=== PATIENT | female | born 1975 | race Caucasian/White ===

== ENCOUNTER → 2018-03-28 | Day surgery (SDC) | payer BC ==
[~2018-03-28] VITALS: Ht 167.6 cm; Wt 106.1 kg
[~2018-03-28] MED LIST: *MEPERIDINE 25 MG INJ VIAL PERIprocedural Use ONLY ONE; *ONDANSETRON 4 MG VIAL PERIprocedural Use ONLY ONE; *morphine SULFATE 4 MG/ML PERIprocedure ONLY ONE; ACETAMINOPHEN 1000 MG/100 ML 100 ML IV ONE; BUPIVACAINE/EPINEPHRINE 0.25% 50 ML VIAL ONE; DEXAMETHASONE SOD PHOS 4 MG/ML VIAL IV ONE; DO NOT ADM ANY ANTICOAGULANT DRUGS PRN; FLUO20CA12 PO; GLYCOPYRROLATE 1 MG/5 ML SYRINGE IV PUSH ONE; LACTATED RINGER'S 1000 ML INJ 1,000 ML IV ONE; LACTATED RINGER'S 1000 ML IV PRN; LIDOCAINE HCL 1% PF 5 ML SYRINGE OTHER ONE; METOPROLOL TARTRATE 25 MG TAB PO PRN; MIDAZOLAM HCL 2 MG/2 ML VIAL ONE; MORPHINE SULFATE 4 MG/ML INJ ONE; NEOSTIGMINE 5 MG/5 ML SYRINGE IV PUSH ONE; ONDANSETRON HCL 4 MG/2 ML VIAL IV ONE; POVIDONE IODINE 5% (ANTISEPSIS KIT) 4 APPLICATIONS EACH NARE PRN; PROPOFOL 200 MG/20 ML AMP IV ONE; ROCURONIUM INJ 50 MG/5 ML SYRINGE IV PUSH ONE; SODIUM CHLORID 0.9% 500 ML IV PRN; STERILE WATER FOR INJECTION 10 ML VIAL IV ONE; VECURONIUM BROMIDE 20 MG VIAL IV ONE; ceFAZolin 2 GM/DEX PREMIX 50 ML IV SCH; ePHEDrine/NS 25 MG/5 ML SYRINGE IV ONE; oxyCODONE/ACETAMINOPHEN 5 MG/325 MG TAB PO PRN
[2018-03-28] MEDS: CHLORHEXIDINE GLUCONATE 2 % 1 PACK (2 CLOTHS) TOPICAL PRN (07:15)
[2018-03-28 08:19] LABS: AUTOMATED NEUTROPHIL # 3.2 TH/MM3 (1.8-7.7); BASOPHIL # 0.1 TH/MM3 (0-0.2); BASOPHIL % 1.1 % (0.0-2.0); EOSINOPHIL # 0.4 TH/MM3 (0-0.4); EOSINOPHIL % 5.4 % (0.0-4.0); HEMATOCRIT 43.3 % (35.0-46.0); HEMOGLOBIN 14.5 GM/DL (11.6-15.3); LYMPH % 38.9 % (9.0-44.0); LYMPHOCYTE # 2.8 TH/MM3 (1.0-4.8); MEAN CORPUSCULAR HEMOGLOBIN 29.1 PG (27.0-34.0); MEAN CORPUSCULAR HGB CONC 33.4 % (32.0-36.0); MEAN PLATELET VOLUME 8.5 FL (7.0-11.0); MONO % 10.2 % (0.0-8.0); MONOCYTE # 0.7 TH/MM3 (0-0.9); NEUT % 44.4 % (16.0-70.0); PLATELET COUNT 335 TH/MM3 (150-450); RED BLOOD COUNT 4.97 MIL/MM3 (4.00-5.30); WHITE BLOOD COUNT 7.1 TH/MM3 (4.0-11.0)
[2018-03-28 08:33] LABS: BICARBONATE 25.1 MEQ/L (21.0-32.0); CALCIUM 8.5 MG/DL (8.5-10.1); CREATININE 0.72 MG/DL (0.50-1.00)
--- NOTE | 2018-03-28 11:56 | HHI.PR ---
Immediate Post Op Note Procedure Date: Mar 28, 2018 Pre Op Diagnosis: morbid obesity, hx of lap band, lap band malfxn, gerd, paraesophageal hiatal hernia Post Op Diagnosis: same Surgeon: Daniel Monte MD Services Mgr(s): see or sheet Procedure: dx lap, lap band removal and all components, paraesophageal hiatal hernia repair , gardenia Findings: GE jxn adhesions, slipped lap band, paraesophageal hernia Complications: none Specimen(s) removed: none Estimated blood loss: 20cc Anesthesia: General Drains: None Patient to: PACU Patient Condition: Good Daniel Monte MD Mar 28, 2018 11:56
[2018-03-28 16:15] VITALS: BP 132/74; PULSE 93; RESP 20; TEMP 97.5; O2SAT 96
--- NOTE | 2018-03-28 17:47 | MP ---
cc: Daniel Monte MD DATE OF OPERATION: 03/28/2018 PREOPERATIVE DIAGNOSES: 1. Morbid obesity. 2. History of laparoscopic band placement, laparoscopic band malfunction, reflux, paraesophageal hiatal hernia. POSTOPERATIVE DIAGNOSES: 1. Morbid obesity. 2. History of laparoscopic band placement, laparoscopic band malfunction, reflux, paraesophageal hiatal hernia. PROCEDURE PERFORMED: 1. Diagnostic laparoscopy. 2. Laparoscopic removal of band with all its components. 3. Paraesophageal hiatal hernia repair. 4. Lysis of adhesions. SURGEON: Daniel Monte MD [facility]: see or sheet ANESTHESIA: GETA. IV FLUIDS: See anesthesia sheet. ESTIMATED BLOOD LOSS: 20 mL DRAINS: None. COMPLICATIONS: None. WOUND CLASSIFICATION: Clean. FINDINGS: Significant adhesions to the GE junction, slipped Lap-Band and paraesophageal hiatal hernia. INDICATIONS FOR PROCEDURE: The patient is a 42-year-old female who presents with a history of bariatric surgery including laparoscopic band placement. The patient had a band in 2009 and had a slippage of this and underwent revision, but the patient had persistent malfunction of Lap-Band and developed a paraesophageal hiatal hernia. Therefore, decision was made for operative intervention. DETAILS OF PROCEDURE: The patient was taken to the operating suite, placed in supine position. She was prepped and draped in the usual sterile fashion after induction of general endotracheal anesthesia. A brief timeout demonstrating correct patient, procedure and surgical site. We were all in agreement with this. Attention first directed to the left side of the umbilicus, 15 cm from the xiphoid. Local anesthetic injected and stab, jose incision made, 5 mm Visiport Optiview port was used to enter the abdomen safely. Abdomen insufflated to 15 mm of pneumoperitoneum. On cursory inspection, GE junction noted to be somewhat scarred in. A right upper quadrant 5 mm port was placed for liver retraction. A second right upper quadrant incision was made 5 cm for port and a 12 mm right lower quadrant port was placed. The left upper quadrant port was also placed 5 mm. The patient was placed in reverse Trendelenburg, airplaned to the right and regine flex was placed, partially elevating the liver. Due to adhesions, full elevation was not possible. The laparoscopic band was noted to be partially visible. Harmonic scalpel used to lyse adhesions around the liver. Once this was facilitated, the liver retractor was repositioned. The Lap-Band adhesions were taken down in order to circumferentially completely mobilize the band. The band was cut and removed from the 12 mm right lower quadrant port. The second cut portion was also removed via the 12 mm port. There was noted to be dilation of the proximal stomach with some chronic scarring, especially at the ET junction. The capsule was incised. This was done using a green load GERA stapler 60 x 3 firings in order to completely open up the chronic fibrosed capsule that had been created after a Lap-Band. Next, we worked medially in order to dissect out the GE junction. The pars was taken down. The left and right crura were identified and adhesions taken down to this view. There was significant scarring again noted in this area. Again, previous hiatal hernia repair was noted. The esophagus was mobilized and the GE junction was reduced into the abdominal cavity. A 1/2 inch [place] was used as a traction device and wrapped around the GE junction. Once the esperanza had been completely identified both left and right, and undermining was done posteriorly, a 0 silk was used in [id number] fashion in order to close the paraesophageal hernia defect. The GE junction sat in the abdominal cavity without tension and was resting comfortably there. Next, hemostasis was obtained. Next, the pneumoperitoneum was removed and attention directed to the port. The port was located in the left upper quadrant. A small incision was made over the previous scarred incision. Further dissection done with Bovie electrocautery down to the port. The port was grasped with a Srinath clamp and fully excised from the pocket and removed. A portion of the scarred capsule was also removed. The band was examined on the back table and confirmed. The 2 parts of the tube did line up, confirming that all the components were removed. The pocket was closed with 0 Prolene, followed by 3-0 Vicryl and 4-0 Monocryl subcuticular suture. All ports were closed with 4-0 Monocryl suture. The right lower quadrant port was also suture with 0 Vicryl placed around the fascia. Sterile dressing was placed. The patient tolerated the procedure. All lap and instrument counts were correct at the end of procedure. The patient was extubated and taken stable to PACU. MD SANDRA Carmona/JESSICA , 05:14 PM , 05:46 PM MTDJuan Pablo
== END | disposition home or self-care (01) ==
LOC: HSDC 06:59
PROVIDERS: ATTEND Surgery
DX: K21.9 Gastro-esophageal reflux disease without esophagitis (principal); K44.9 Diaphragmatic hernia without obstruction or gangrene; E66.01 Morbid (severe) obesity due to excess calories; K95.09 Other complications of gastric band procedure
CPT/HCPCS: 00790; 00797; 43281; 43774; 80048; 85025; J0131; J0690; J1100; J2175; J2250; J2270; J2405; J2710; J3010; J7120